=== PATIENT | male | born 1985 | race Caucasian/White ===

== ENCOUNTER 2023-09-28 14:24 | Emergency (ER) | payer OTHER ==
[~2023-09-28] VITALS: Ht 170.2 cm; Wt 78.0 kg
[2023-09-28 14:33] VITALS: TEMP 100.4; O2SAT 98
[2023-09-28] MEDS ORDERED: AMOX1TAB16 MT (14:41)
[2023-09-28 14:45] VITALS: BP 116/75; PULSE 74; RESP 16
[2023-09-28] MEDS ORDERED: KETOROLAC 60MG/2ML VIAL IM ONE (14:45)
== END 2023-09-28 17:27 | disposition home or self-care (01) ==
LOC: ER 14:24
DX: K04.7 Periapical abscess without sinus (principal); Z88.8 Allergy status to other drugs, medicaments and biological substances
CPT/HCPCS: 96372; 99283; J1885; Z7610